=== PATIENT | male | born 1955 | race Two or more races ===

== ENCOUNTER 2023-07-08 09:23 | Emergency (ER) | payer OTHER ==
[~2023-07-08] VITALS: Ht 167.6 cm; Wt 103.4 kg
[2023-07-08] MEDS ORDERED: COZAAR25 MG PO (09:46)
[2023-07-08] MEDS ORDERED: ACIDOPHILUS1 EACH (09:46)
== END 2023-07-08 10:38 | disposition home or self-care (01) ==
LOC: ER 09:24
DX: J06.9 Acute upper respiratory infection, unspecified (principal); R50.9 Fever, unspecified; I10 Essential (primary) hypertension